=== PATIENT | male | born 1950 | race Caucasian/White ===

== ENCOUNTER 2017-04-01 06:47 | Day surgery (SDC) | payer OTHER ==
[2017-04-01] MEDS ORDERED: NS 500 ML IV 500 ML IV ONE (07:09)
[2017-04-01] MEDS ORDERED: TETRACAINE 0.5% OPHTH 1 DOSE AFFEYE ONE ×5 (07:18→10:00)
[2017-04-01] MEDS ORDERED: VIGAMOX 0.5% OPHTH 1 DOSE AFFEYE ONE ×6 (07:20→10:12)
[2017-04-01] MEDS ORDERED: PROLENSA OPHTH 1 DOSE AFFEYE ONE (07:32)
[2017-04-01] MEDS ORDERED: ALPHAGAN-P OPHTH 1 DOSE AFFEYE ONE (07:33)
[2017-04-01] MEDS ORDERED: MYDRIACIL OPHTH 1 DOSE AFFEYE ONE ×3 (07:34→07:38)
[2017-04-01] MEDS ORDERED: AK-DILATE 2.5% OPHTH 1 DOSE OP ONE ×3 (07:34→07:38)
[2017-04-01] MEDS ORDERED: CYCLOGYL 1% OPHTH 1 DOSE OP ONE ×3 (07:34→07:38)
[2017-04-01] MEDS ORDERED: BETADINE OPHTH SOLN 5% EACHEYE ONE ×2 (08:44→09:36)
[2017-04-01] MEDS ORDERED: DUOVISC IO ONE ×3 (08:45→10:00)
[2017-04-01] MEDS ORDERED: ADRENALINE CHL INJ IJ ONE ×3 (08:45→10:00)
[2017-04-01] MEDS ORDERED: XYLOCAINE-MPF 1% IJ ONE ×3 (08:45→10:00)
[2017-04-01] MEDS ORDERED: BSS OPHTH (PLAIN) 500 ML with VANCOMYCIN HCL 500 MG VIAL 25 MG, ADRENALINE CHL INJ 1 MG IR ONE ×6 (08:45)
[2017-04-01] MEDS ORDERED: KENALOG INJ 40 MG IM ONE ×3 (09:39→10:11)
[2017-04-01 10:29] VITALS: BP 144/75
[2017-04-01] MEDS ORDERED: DIPRIVAN VIAL ONE (13:58)
== END 2017-04-01 10:33 | disposition home or self-care (01) ==
LOC: SURG1 06:47
PROVIDERS: ATTEND Ophthalmology
PROC: 08DJ3ZZ Extraction of Right Lens, Percutaneous Approach (ICD-10-PCS; principal; 2017-04-01 09:00)
PROC: 08RJ3JZ Replacement of Right Lens with Synthetic Substitute, Percutaneous Approach (ICD-10-PCS; principal; 2017-04-01 09:00)
PROC: 08BSXZX Excision of Right Conjunctiva, External Approach, Diagnostic (ICD-10-PCS; principal; 2017-04-01 09:00)
DX: H25.11 Age-related nuclear cataract, right eye (principal); H11.051 Peripheral pterygium, progressive, right eye
CPT/HCPCS: A4217; J0170; J3301; J3370; J3490

== ENCOUNTER 2017-04-08 09:48 | Day surgery (SDC) | payer OTHER ==
[2017-04-08] MEDS ORDERED: NS 500 ML IV 500 ML IV ONE (09:57)
[2017-04-08] MEDS ORDERED: TETRACAINE 0.5% OPHTH 1 DOSE AFFEYE ONE ×2 (10:03→13:31)
[2017-04-08] MEDS ORDERED: VIGAMOX 0.5% OPHTH 1 DOSE AFFEYE ONE ×3 (10:05→10:15)
[2017-04-08] MEDS ORDERED: PROLENSA OPHTH 1 DOSE AFFEYE ONE (10:16)
[2017-04-08] MEDS ORDERED: ALPHAGAN-P OPHTH 1 DOSE AFFEYE ONE (10:17)
[2017-04-08] MEDS ORDERED: MYDRIACIL OPHTH 1 DOSE AFFEYE ONE ×2 (10:18→10:19)
[2017-04-08] MEDS ORDERED: CYCLOGYL 1% OPHTH 1 DOSE OP ONE ×2 (10:18→10:19)
[2017-04-08] MEDS ORDERED: AK-DILATE 2.5% OPHTH 1 DOSE OP ONE ×2 (10:18→10:19)
[2017-04-08] MEDS ORDERED: BETADINE OPHTH SOLN 5% EACHEYE ONE (13:31)
[2017-04-08] MEDS ORDERED: ADRENALINE CHL INJ IJ ONE (13:36)
[2017-04-08] MEDS ORDERED: DUOVISC IO ONE (13:36)
[2017-04-08] MEDS ORDERED: XYLOCAINE-MPF 1% IJ ONE (13:36)
[2017-04-08] MEDS ORDERED: BSS OPHTH (PLAIN) 500 ML with VANCOMYCIN HCL 500 MG VIAL 25 MG, ADRENALINE CHL INJ 1 MG IR ONE ×3 (13:36)
[2017-04-08] MEDS ORDERED: KENALOG INJ 40 MG IM ONE ×2 (13:44→13:48)
[2017-04-08] MEDS ORDERED: TobraDEX OPHTH SUSP 1 DOSE AFFEYE ONE (13:49)
[2017-04-08 16:49] VITALS: BP 120/74
== END 2017-04-08 14:15 | disposition home or self-care (01) ==
LOC: SURG1 09:48
PROVIDERS: ATTEND Ophthalmology
PROC: 08RK3JZ Replacement of Left Lens with Synthetic Substitute, Percutaneous Approach (ICD-10-PCS; principal; 2017-04-08 14:15)
PROC: 08BTXZX Excision of Left Conjunctiva, External Approach, Diagnostic (ICD-10-PCS; principal; 2017-04-08 14:15)
PROC: 08DK3ZZ Extraction of Left Lens, Percutaneous Approach (ICD-10-PCS; principal; 2017-04-08 14:15)
PROC: 08U107Z Supplement of Left Eye with Autologous Tissue Substitute, Open Approach (ICD-10-PCS; principal; 2017-04-08 14:15)
DX: H25.12 Age-related nuclear cataract, left eye (principal); H11.052 Peripheral pterygium, progressive, left eye
CPT/HCPCS: A4217; J0170; J3301; J3370

== ENCOUNTER 2020-06-05 13:19 | Observation (INO) ==
[2020-06-05 13:30] VITALS: BMI 28.4
--- NOTE | 2020-06-05 13:52 | DR.GENAD ---
HPI Time Seen Time Seen by Provider: 06/05/20 13:40 PCP Primary Care Physician: TAL NAVA HPI Comment HPI Comment: PATIENT WITH A HISTORY OF ASTHMA, COPD COMPLAINS OF DYSPNEA, PRODUCTIVE COUGH GREEN SPUTUM, FEVER. 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 HAS BEEN RECEIVING CHEMO THERAPY EVERY 3 WEEKS FOR 4 YEARS, LAST COURSE LAST WEEK, FELL LAST WEEK AND SUSTAINED INJURY TO HIS RIGHT SHOULDER AND KNEE. Complaint/Symptoms Chief Complaint Doctors Comments: PRODUCTIVE COUGH, GREEN SPUTUM, DYSPNEA, WEAKNESS, FALL INJURY TO RIGHT KNEE AND SHOULDER Chief Complaint:: PT C/O GRADUALLY WORSENING SHORTESS OF BREATH X 1 WEEK ASSOCIATED WITH PRODUCTIVE COUGH. PT ALSO C/O DARK URINE X 1 WEEK. 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, LUNG AND LIVER, NEUROPATHY Past Surgical History: No Past Surgical History Comment: PEG TUBE Family History History of Family Medical Conditions: Yes Family Medical History: Hypertension Social History Does patient currently use any type of tobacco product: No Have you used tobacco products in the last 12 months: No Type of Tobacco Use: None Does any household member use tobacco: No Alcohol Use: None Do you use any recreational Drugs:: No Lives With: Family Lives Where: Home Infectious screening In the last 2 months have you had wt loss of >10#?: NO Have you had fever, night sweats or hemotysis?: No Have you traveled outside the country in the last 6 months?: No Isolation: Standard ROS Review of Systems Constitutional: See HPI Eyes: No Symptoms Reported ENTM: No Symptoms Reported Respiratoy: See HPI and Productive Cough Cardiovascular: No Symptoms Reported Gastrointestinal/Abdominal: No Symptoms Reported Genitourinary: No Symptoms Reported Neurological: Weakness Musculoskeletal: No Symptoms Reported Integumentary: No Symptoms Reported Hematologic/Lymphatic: No Symptoms Reported Endocrine: No Symptoms Reported Psychiatric: No Symptoms Reported All Other Systems: Reviewed and Negative PE Vital Signs Vitals: Temperature 98.0 F Pulse Rate 116 Respiratory Rate 20 Blood Pressure 131/65 O2 Sat by Pulse Oximetry 97 General Limitations: Physical Limitation General Appearance: Alert and In No Apparent Distress Head Head Exam: Normal Inspection and Atraumatic Eyes Eye exam: Normal Appearance and PERRL ENT ENT Exam: Normal Exam and Normal Oropharynx TM/Canal Exam: Bilateral: Normal Nose Exam: Normal Nose Exam Mouth Exam: Normal Inspection Throat Exam: Normal Inspection Neck Neck Exam: Normal Inspection and Full ROM Respiratory Respiratory Exam: Bilateral: Decreased Breath Sounds (AT BASES) Cardiovascular Cardiovascular Exam: Regular Rate and Tachycardia Abdominal Exam Abdominal Exam: Normal Inspection, Normal Bowel Sounds and Soft Back Back Exam: Normal Inspection and Full ROM Neurologic Neurological Exam: Alert, Oriented X3 and CN II-XII Intact MDM Differential Diagnosis Differential Diagnosis: EXACERBATION COPD, PNEUMONIA, GENERAL WEAKNESS COURSE Treatment Treatment: IV NORMAL SALINE 200ML/HR, AFTER 2 SETS OF BLOOD CULTURES, ADMINISTERED ROCEPHIN, SOLUMEDROL 125MG, DUO NEB AEROSOL Reevaluation 1st: Improved Consultation Call Returned: 17:38 Consultation Comments: FINDINGS DISCUSSED WITH DR SMITH AT 1738 FOR OBSERVAT ION ROR Labs Reviewed Laboratory Results Reviewed?: Yes Result Diagrams: 06/05/20 14:12 06/05/20 14:12 Laboratory: WBC 7.0 X10^3/uL (3.6-10.0) 06/05/20 14:12 RBC 2.97 X10^6/uL (4.7-6.0) L 06/05/20 14:12 Hgb 9.5 g/dL (13.5-18.0) L 06/05/20 14:12 Hct 28.6 % (42.0-54.0) L 06/05/20 14:12 MCV 96.3 fL (80.0-100.0) 06/05/20 14:12 MCH 31.9 pg (27.0-34.0) 06/05/20 14:12 MCHC 33.1 g/dL (33.0-35.0) 06/05/20 14:12 RDW 17.7 % (11.6-16.5) H 06/05/20 14:12 Plt Count 193 X10^3/uL (150.0-450.0) 06/05/20 14:12 MPV 9.4 fL (7.4-11.0) 06/05/20 14:12 Neut % (Auto) 63.9 % (42.0-75.0) 06/05/20 14:12 Lymph % (Auto) 14.6 % (21.0-51.0) L 06/05/20 14:12 Forrest % (Auto) 13.6 % (0.0-13.0) H 06/05/20 14:12 Eos % (Auto) 7.6 % (0.9-2.9) H 06/05/20 14:12 Baso % (Auto) 0.3 % (0.2-1.0) 06/05/20 14:12 Neut # (Auto) 4.5 x10^3/uL (2.2-4.8) 06/05/20 14:12 Lymph # (Auto) 1.0 X10^3/uL (1.3-2.9) L 06/05/20 14:12 Forrest # (Auto) 1.0 x10^3/uL (0.3-0.8) H 06/05/20 14:12 Eos # (Auto) 0.5 x10^3/uL (0.0-0.2) H 06/05/20 14:12 Baso # (Auto) 0.0 X10^3/uL (0.0-0.1) 06/05/20 14:12 Absolute Nucleated RBC 0.0 /100WBC 06/05/20 14:12 PT 14.1 SECONDS (11.8-14.3) 06/05/20 14:12 INR Target Range - 06/05/20 14:12 INR 1.14 (0.8-1.3) 06/05/20 14:12 D-Dimer 3.30 ug/ml (0.0-0.57) H* 06/05/20 14:20 Sample Site Rbra 06/05/20 14:30 ABG pH 7.420 (7.35-7.45) 06/05/20 14:30 ABG pCO2 36.0 mmHg (35.0-45.0) 06/05/20 14:30 ABG pO2 84.0 mmHg (80.0-100.0) 06/05/20 14:30 ABG HCO3 23.4 mmol/L (22-26) 06/05/20 14:30 ABG O2 Saturation 96.0 % (90-100) 06/05/20 14:30 ABG Base Excess -0.7 mmol/L (-2.0-2.0) 06/05/20 14:30 Henok Test N/a 06/05/20 14:30 A-a Gradient 99.0 mmHg 06/05/20 14:30 FiO2 32.0 06/05/20 14:30 Blood Gas Comments Pt alex well eb 06/05/20 14:30 Sodium 141 mmol/L (136-145) 06/05/20 14:12 Corrected Sodium 143 mmol/L (136-145) 06/05/20 14:12 Potassium 4.4 mmol/L (3.5-5.1) 06/05/20 14:12 Chloride 105 mmol/L (98-107) 06/05/20 14:12 Carbon Dioxide 25.1 mmol/L (21-32) 06/05/20 14:12 BUN 38 mg/dL (7-18) H 06/05/20 14:12 Creatinine 2.37 mg/dL (0.70-1.30) H 06/05/20 14:12 Est GFR (MDRD) Af Amer 35 (>60) L 06/05/20 14:12 Est GFR (MDRD) Non-Af 29 (>60) L 06/05/20 14:12 Glucose 174 mg/dL (65-99) H 06/05/20 14:12 Lactic Acid 1.7 mmol/L (0.4-2.0) 06/05/20 16:57 Calcium 9.7 mg/dL (8.5-10.1) 06/05/20 14:12 Corrected Calcium 10.7 mg/dL (8.5-10.1) H 06/05/20 14:12 Total Bilirubin 0.20 mg/dL (0.2-1.0) 06/05/20 14:12 AST 19 Units/L (15-37) 06/05/20 14:12 ALT 34 Units/L (12-78) 06/05/20 14:12 Alkaline Phosphatase 76 Units/L (46-116) 06/05/20 14:12 Troponin I < 0.02 ng/mL (0-1.5) 06/05/20 14:12 B-Natriuretic Peptide 56.9 pg/mL (0-79) 06/05/20 14:12 Total Protein 8.2 g/dL (6.4-8.2) 06/05/20 14:12 Albumin 2.8 g/dL (3.4-5.0) L 06/05/20 14:12 Globulin 5.4 g/dL (2.5-4.5) H 06/05/20 14:12 Albumin/Globulin Ratio 0.5 Ratio (1.1-2.1) L 06/05/20 14:12 Influenza Type A Ag Negative-presumptive (NEGATIVE) 06/05/20 14:14 Influenza Type B Ag Negative-presumptive (NEGATIVE) 06/05/20 14:14 SARS CoV-2 RNA Rapid JOHN Negative (NEGATIVE) 06/05/20 14:14 XRAY XRAY Interpreted by: Radiologist (PORTABLE CHEST XRAY NEGATIVE OR ABNORMALITIES) EKG Rate: 104 [place]: Normal Rhythm: NSR and ST ST: Nonsp (LOW VOLTAE EXREMITY LEADS) Opioid Opioid Risk Tool Total: 0 Total Score Risk Category: Low Risk Copyright: [place] predicting aberrant behaviors Diagnosis Discharge Problem: Acute exacerbation of chronic obstructive pulmonary disease, Generalized weakness Instructions Forms: Patient Portal Social Distancing
[2020-06-05] MEDS ORDERED: ROCEPHIN 1 GRAM IV PREMIX 1 G/50 ML IV.SOLN. IV ONE ×2 (13:55→14:19)
[2020-06-05 14:32] LABS: BASOPHILS % (AUTO) 0.3 % (0.2-1.0); EOSINOPHILS # (AUTO) 0.5 x10^3/uL (0.0-0.2); EOSINOPHILS % (AUTO) 7.6 % (0.9-2.9); HEMATOCRIT 28.6 % (42.0-54.0); HEMOGLOBIN 9.5 g/dL (13.5-18.0); LYMPHOCYTES % (AUTO) 14.6 % (21.0-51.0); MEAN CORPUSCULAR HEMOGLOBIN 31.9 pg (27.0-34.0); MEAN CORPUSCULAR HGB CONC 33.1 g/dL (33.0-35.0); MEAN CORPUSCULAR VOLUME 96.3 fL (80.0-100.0); MEAN PLATELET VOLUME 9.4 fL (7.4-11.0); MONOCYTES % (AUTO) 13.6 % (0.0-13.0); NEUTROPHILS # (AUTO) 4.5 x10^3/uL (2.2-4.8); NEUTROPHILS % (AUTO) 63.9 % (42.0-75.0); PLATELET COUNT 193 X10^3/uL (150.0-450.0); RED BLOOD COUNT 2.97 X10^6/uL (4.7-6.0); RED CELL DISTRIBUTION WIDTH 17.7 % (11.6-16.5)
[2020-06-05 14:33] LABS: ABG BASE EXCESS -0.7 mmol/L (-2.0-2.0); ABG HCO3 23.4 mmol/L (22-26)
[2020-06-05 14:49] LABS: ALANINE AMINOTRANSFERASE 34 Units/L (12-78); ALBUMIN 2.8 g/dL (3.4-5.0); ALKALINE PHOSPHATASE 76 Units/L (46-116); ASPARTATE AMINO TRANSFERASE 19 Units/L (15-37); BLOOD UREA NITROGEN 38 mg/dL (7-18); CALCIUM 9.7 mg/dL (8.5-10.1); CARBON DIOXIDE 25.1 mmol/L (21-32); CHLORIDE 105 mmol/L (98-107); COR CA(FOR HYPOALB) 10.7 mg/dL (8.5-10.1); COR NA(FOR HYPERGLY) 143 mmol/L (136-145); CREATININE 2.37 mg/dL (0.70-1.30); SODIUM 141 mmol/L (136-145); TOTAL PROTEIN 8.2 g/dL (6.4-8.2); TROPONIN I < 0.02 ng/mL (0-1.5); eGFR NON BLACK RACES 29 (>60)
--- NOTE | 2020-06-05 14:50 | RAD ---
HISTORYCOUGHSTUDYCHEST, 1 VIEWCOMPARISONJanuary 2019FINDINGSThe trachea is midline. The cardiac silhouette is stable. The lungs demonstrate stable appearing chronic interstitial changes without focal infiltrate or effusion. The bony thorax is unremarkable.IMPRESSIONNo acute cardiopulmonary disease.Electronically signed by: YOSEF BARRIENTOS (Jun 05, 2020 14:48:31)
[2020-06-05] MEDS ORDERED: DUONEB 0.5 MG/3 MG (3 mL) NEB ONE ×2 (16:15→16:25)
[2020-06-05] MEDS ORDERED: SOLU-Medrol 125 MG VIAL IVP ONE (16:15)
[2020-06-05] MEDS ORDERED: SOLU-Medrol 125 MG VIAL ONE (16:21)
--- NOTE | 2020-06-05 16:40 | RAD ---
HISTORYTRAUMA TO RT KNEESTUDYSHOULDER, RIGHTCOMPARISONFINDINGSThe appearance of the clavicle is unremarkable. There is joint space narrowing and mild inferior lipping at the AC joint. The glenohumeral articulation is normal in its appearance. No acute cortical disruption or dislocation can be identified. The visualized portions of the scapula are unremarkable. In addition, the visualized portions of the chest appear unremarkable.IMPRESSIONNegative exam other than degenerative narrowing and mild lipping inferiorly at the AC joint.Electronically signed by: LENKA SIMMONS (Jun 05, 2020 16:38:20)
--- NOTE | 2020-06-05 16:42 | RAD ---
HISTORYTRAUMA TO RT KNEESTUDYKNEE, AP/LAT RIGHTCOMPARISONNoneFINDINGSNo evidence for acute cortical disruption or dislocation. The medial and lateral tibiofemoral compartments appear unremarkable without loss of significant joint space. The lateral radiograph does demonstrate a moderate joint effusion. Patellofemoral compartment is normal in its appearance.IMPRESSIONNegative exam for acute fracture but there is minimal joint space narrowing medial compartment and there is a moderate joint effusion.Electronically signed by: LENKA SIMMONS (Jun 05, 2020 16:40:15)
[2020-06-05] MEDS ORDERED: LOVENOX INJ 40 MG SYR SC STA (17:34)
[2020-06-05] MEDS ORDERED: LOVENOX INJ 40 MG SYR SC ONE (17:50)
[2020-06-05] MEDS ORDERED: ROCEPHIN VIAL 1 GRAM 1 G in NS 100 ML IV + SPIKE MINIBAG* 100 ML IV SCH (18:20)
[2020-06-05] MEDS: ZITHROMAX INJ 500 MG VIAL 500 MG in NS 250 ML IV 250 ML IV SCH (19:45)
[2020-06-05] MEDS: NS 1,000 ML IV 1,000 ML IV SCH (19:45)
[2020-06-05] MEDS: DUONEB 0.5 MG/3 MG (3 mL) NEB SCH (20:10)
[2020-06-05] MEDS: NEURONTIN CAP 100 MG PO SCH (22:05)
[2020-06-05] MEDS: SOLU-Medrol 125 MG VIAL IVP SCH (22:05)
[2020-06-05] MEDS: ROXICODONE TAB 5 MG PO PRN (23:05)
[2020-06-06] MEDS: SOLU-Medrol 125 MG VIAL IVP SCH ×3 (05:00→21:01)
[2020-06-06 06:00] LABS: BASOPHILS % (AUTO) 0.2 % (0.2-1.0); EOSINOPHILS % (AUTO) 0.1 % (0.9-2.9); HEMATOCRIT 25.9 % (42.0-54.0); HEMOGLOBIN 8.6 g/dL (13.5-18.0); LYMPHOCYTES # (AUTO) 0.7 X10^3/uL (1.3-2.9); MEAN CORPUSCULAR HEMOGLOBIN 32.2 pg (27.0-34.0); MEAN CORPUSCULAR HGB CONC 33.4 g/dL (33.0-35.0); MEAN CORPUSCULAR VOLUME 96.4 fL (80.0-100.0); MEAN PLATELET VOLUME 9.8 fL (7.4-11.0); MONOCYTES # (AUTO) 0.2 x10^3/uL (0.3-0.8); MONOCYTES % (AUTO) 3.1 % (0.0-13.0); NEUTROPHILS # (AUTO) 6.5 x10^3/uL (2.2-4.8); NEUTROPHILS % (AUTO) 86.6 % (42.0-75.0); PLATELET COUNT 173 X10^3/uL (150.0-450.0); RED BLOOD COUNT 2.68 X10^6/uL (4.7-6.0); WHITE BLOOD COUNT 7.5 X10^3/uL (3.6-10.0)
[2020-06-06 06:19] LABS: ALBUMIN 2.5 g/dL (3.4-5.0); CALCIUM 9.4 mg/dL (8.5-10.1); CARBON DIOXIDE 20.8 mmol/L (21-32); COR CA(FOR HYPOALB) 10.6 mg/dL (8.5-10.1); CREATININE 2.23 mg/dL (0.70-1.30); TOTAL PROTEIN 7.5 g/dL (6.4-8.2)
[2020-06-06] MEDS ORDERED: ROCEPHIN VIAL 1 GRAM 1 G in NS 100 ML IV + SPIKE MINIBAG* 100 ML IV SCH (09:00)
[2020-06-06 09:23] LABS: BILIRUBIN,URINE NEGATIVE (NEGATIVE); BLOOD/HEMOGLOBIN,URINE 2+ (NEGATIVE); GLUCOSE, URINE 3+ (NEGATIVE); KETONES,URINE NEGATIVE (NEGATIVE); LEUKOCYTE ESTERASE ,URINE NEGATIVE (NEGATIVE); NITRITES,URINE NEGATIVE (NEGATIVE); PROTEIN,URINE 2+ (NEGATIVE); UROBILINOGEN,URINE NORMAL (NORMAL)
[2020-06-06 09:24] LABS: APPEARANCE,URINE CLEAR (CLEAR); COLOR,URINE YELLOW (YELLOW)
[2020-06-06 09:33] LABS: BACTERIA,URINE NEGATIVE /HPF (NEGATIVE); RBC,URINE 0-2 /HPF (0-3); SQUAMOUS EPITHELIAL CELL,UR RARE /HPF (NEGATIVE)
[2020-06-06] MEDS ORDERED: ZITHROMAX INJ 500 MG VIAL IV ONE (09:35)
[2020-06-06] MEDS: DUONEB 0.5 MG/3 MG (3 mL) NEB SCH ×4 (09:40→20:31)
[2020-06-06] MEDS: REMERON PO SCH (09:49)
[2020-06-06] MEDS: ROCEPHIN VIAL 1 GRAM 1 G in NS 100 ML IV + SPIKE MINIBAG* 100 ML IV SCH ×2 (09:49→09:50)
[2020-06-06] MEDS: NEURONTIN CAP 100 MG PO SCH ×2 (09:49→20:02)
[2020-06-06] MEDS: LOVENOX INJ 40 MG SYR SC SCH (09:50)
[2020-06-06] MEDS: ZITHROMAX INJ 500 MG VIAL 500 MG in NS 250 ML IV 250 ML IV SCH (09:50)
[2020-06-06] MEDS: NS 1,000 ML IV 1,000 ML IV SCH ×3 (13:38→23:23)
[2020-06-06] MEDS: ROXICODONE TAB 5 MG PO PRN (13:55)
--- NOTE | 2020-06-06 16:31 | CT ---
HISTORYRIGHT SHOULDER TRAUMA, FALL X 2.5 WEEKS AGOSTUDYCT right shoulder without IV contrastCOMPARISONX-ray 05/1920TECHNIQUEMultiple axial images of the right shoulder are obtained without the administration of IV contrast. Dose reduction techniques including Automated Exposure Control (AEC) and adjustment of mA and kV were utilized.FINDINGSSmall osteophytes are seen along the undersurface of the AC joint with mild arthritic changes in the AC joint. Mild osteoarthritic changes are suspected in the glenohumeral joint. No fracture or dislocation is seen. No muscle atrophy is seen. No humeral head subluxation is seen. No hematoma formation or joint effusion is seen.IMPRESSIONMild arthritic changes are seen without evidence of posttraumatic abnormality.Electronically signed by: Andrew Watts (Jun 06, 2020 16:29:06)
--- NOTE | 2020-06-06 16:35 | CT ---
HISTORYRIGHT KNEE TRAUMA, FALL X 2.5 WEEKS AGOSTUDYCT right knee without IV contrastCOMPARISONX-ray 05/1920TECHNIQUEMultiple axial images of the right knee are obtained without the administration of IV contrast. Dose reduction techniques including Automated Exposure Control (AEC) and adjustment of mA and kV were utilized.FINDINGSBones are osteopenic. No fracture or dislocation is seen. There is [id number] joint effusion. Mild medial compartmental narrowing is seen with likely mild osteoarthritic changes. No patellar subluxation is seen. Subcutaneous soft tissue edema is seen in the anterior aspect of the knee. Diffuse vascular calcifications are seen. No hematoma formation is seen.IMPRESSIONMild osteoarthritic changes are seen with [id number] joint effusion.No fracture is seen.Electronically signed by: Andrew Watts (Jun 06, 2020 16:32:55)
--- NOTE | 2020-06-06 18:02 | DR.H&P ---
H&P - History & Physical for Day of: H&P Date: 06/05/20 - Chief Complaint Chief Complaint: WEAKNESS, BELLA, RIGHT SHOULDER AND RIGHT KNEE PAIN - History of Present Illness History of Present Illness: PT STATES HE FELL ABOUT 2 WEEKS AGO WITH INJURY TO RIGHT SHOULDER AND RIGHT KNEE. PT REPORTS HE COULD NOT AMBULATE AND WAS HOME CONFINED WITH INCREASED WEAKNESS. PT REPORTS HAVING COPD AND INCREASED SOB ON EXERTION. PT HAS PMH OF PROSTATES, LUNG AND THROAT CANCER. PT ALSO HAS PMH OF HTN AND OA. PT ADMITTED FOR TREATMENT OF ACUTE ILLNESS. - Past Medical History Past Medical History: Angina, Hypertension, Dyslipidemia, Renal Disease, COPD, GERD Additional Medical History: PROSTATE CA, LUNG CA, THROAT CA - Past Surgical History Surgical History: Ortho Surgery - Family History Family Medical History: Hypertension - Social History Does patient currently use any type of tobacco product: No Have you used tobacco products in the last 12 months: No Type of Tobacco Use: None Does any household member use tobacco: No Alcohol Use: None Drug Use: None - Medications Home Medications: Penicillins Allergy (Verified 04/01/17 07:27) CONTINUE taking the following medications gabapentin 100 mg PO BID 06/05/20 [History] mirtazapine 15 mg PO DAILY 06/05/20 [History] oxycodone 5 mg PO BID PRN 06/05/20 [History] - Review of Systems Constitutional: Weakness Eyes: No Symptoms Reported ENT: No Symptoms Reported Respiratory: SOB with Excertion Cardiovascular: No Symptoms Reported Gastrointestinal: Nausea Genitourinary: Frequency Musculoskeletal: Shoulder Pain, Leg Pain Skin: No Symptoms Reported Neurological: Weakness - Physical Exam Vital Signs: Temperature 98.6 F Pulse Rate [Left Radial] 118 Pulse Rate 119 Respiratory Rate 18 Blood Pressure [Right Arm] 121/60 Blood Pressure [Left Arm] 184/95 Blood Pressure 131/65 O2 Sat by Pulse Oximetry 95 Oriented: Normal Eyes: Normal Ear: Normal Nose: Normal Throat: Normal Respiratory: RML Diminished, RLL Diminished, LML Diminished, LLL Diminished Cardiovascular: Normal : Normal Auscultation: Bowel Sounds: Normal Palpation: Normal Tenderness: Normal Skin: Decreased Turgur Musculoskeletal: Right, Shoulder, Knee, Back:Lumbar Psychiatric: Anxiety Affect: Anxious Speech Pattern: Clear, Appropriate - Assessment/Plan (1) Acute exacerbation of chronic obstructive pulmonary disease Status: Acute Plan: ADMIT, IV HYDRATION. IV ATBX, RESP THERAPY. SUPPLEMENTAL O2, CXR ON ADMISSION. PAIN CONTROL, AM LABS. VERIFY HOME MEDICATION (2) Fall Status: Acute (3) Lung cancer Status: Acute (4) Generalized weakness Status: Acute - Allergies Allergies/Adverse Reactions: Allergies Allergy/AdvReac Type Severity Reaction Status Date / Time Penicillins Allergy Verified 04/01/17 07:27
[2020-06-07] MEDS: ROXICODONE TAB 5 MG PO PRN ×2 (00:19→10:09)
[2020-06-07 04:39] LABS: BASOPHILS % (AUTO) 0.2 % (0.2-1.0); HEMATOCRIT 25.6 % (42.0-54.0); HEMOGLOBIN 8.2 g/dL (13.5-18.0); LYMPHOCYTES # (AUTO) 0.6 X10^3/uL (1.3-2.9); LYMPHOCYTES % (AUTO) 5.1 % (21.0-51.0); MEAN CORPUSCULAR HEMOGLOBIN 31.3 pg (27.0-34.0); MEAN CORPUSCULAR VOLUME 97.7 fL (80.0-100.0); MEAN PLATELET VOLUME 9.9 fL (7.4-11.0); MONOCYTES # (AUTO) 0.7 x10^3/uL (0.3-0.8); MONOCYTES % (AUTO) 6.1 % (0.0-13.0); NEUTROPHILS # (AUTO) 10.4 x10^3/uL (2.2-4.8); NEUTROPHILS % (AUTO) 88.6 % (42.0-75.0); PLATELET COUNT 179 X10^3/uL (150.0-450.0); RED BLOOD COUNT 2.62 X10^6/uL (4.7-6.0); RED CELL DISTRIBUTION WIDTH 17.8 % (11.6-16.5); WHITE BLOOD COUNT 11.7 X10^3/uL (3.6-10.0)
[2020-06-07 04:45] LABS: ALBUMIN 2.6 g/dL (3.4-5.0); CALCIUM 8.9 mg/dL (8.5-10.1); CARBON DIOXIDE 20.2 mmol/L (21-32); CREATININE 2.23 mg/dL (0.70-1.30); TOTAL PROTEIN 7.3 g/dL (6.4-8.2)
[2020-06-07] MEDS: SOLU-Medrol 125 MG VIAL IVP SCH (05:41)
[2020-06-07 07:54] VITALS: BP 132/60
[2020-06-07] MEDS: DUONEB 0.5 MG/3 MG (3 mL) NEB SCH (08:19)
[2020-06-07] MEDS ORDERED: NovoLIN R (or HumuLIN R) SUBCUT PRN (08:26)
[2020-06-07] MEDS: ROCEPHIN VIAL 1 GRAM 1 G in NS 100 ML IV + SPIKE MINIBAG* 100 ML IV SCH (08:56)
[2020-06-07] MEDS: REMERON PO SCH (09:02)
[2020-06-07] MEDS: NEURONTIN CAP 100 MG PO SCH (09:02)
[2020-06-07] MEDS: LOVENOX INJ 40 MG SYR SC SCH (09:09)
[2020-06-07] MEDS: ZITHROMAX INJ 500 MG VIAL 500 MG in NS 250 ML IV 250 ML IV SCH (10:08)
[2020-06-07] MEDS ORDERED: ZITHROMAX INJ 500 MG VIAL IV ONE (10:15)
[2020-06-07] MEDS ORDERED: SNACK - Diabetic Appropriate PO SCH (20:00)
== END 2020-06-07 13:15 | disposition home health service (06) ==
LOC: ER 13:19 → MED/SURG 13:19
PROVIDERS: ADMIT Internal Medicine; ATTEND Internal Medicine
DX: M25.511 Pain in right shoulder; I10 Essential (primary) hypertension; C34.90 Malignant neoplasm of unspecified part of unspecified bronchus or lung; Z85.819 Personal history of malignant neoplasm of unspecified site of lip, oral cavity, and pharynx; R26.89 Other abnormalities of gait and mobility; Z92.21 Personal history of antineoplastic chemotherapy; R06.02 Shortness of breath; K21.9 Gastro-esophageal reflux disease without esophagitis; Z91.81 History of falling; Z85.46 Personal history of malignant neoplasm of prostate; E78.2 Mixed hyperlipidemia; Z20.822 Contact with and (suspected) exposure to COVID-19; M19.90 Unspecified osteoarthritis, unspecified site; M25.561 Pain in right knee; J44.1 Chronic obstructive pulmonary disease with (acute) exacerbation; R53.1 Weakness